=== PATIENT | male | born 1955 | race Caucasian/White ===

== ENCOUNTER → 2016-11-17 | Outpatient (CLI) | payer OTHER ==
[2016-11-17 12:29] LABS: HEMATOCRIT 37.5 % (42.0-52.0); HEMOGLOBIN 12.9 g/dL (14.0-18.0); MEAN CORPUSCULAR HEMOGLOBIN 31.6 PG (27-31); MEAN CORPUSCULAR HGB CONC 34.4 g/dL (33-37); MEAN PLATELET VOLUME 8.6 FL (7.4-12.2); RDW COEFFICIENT OF VARIATION 13.4 % (11.5-14.5); RED BLOOD COUNT 4.08 10^6/uL (4.70-6.10); WHITE BLOOD COUNT 4.25 10^3/uL (4.8-10.8)
--- NOTE | 2016-11-17 12:41 | DI ---
PA /LATERAL CHEST X-RAY, 11/17/2016 10:42 AM : Clinical History: Abnormal lung sounds. Previous Exam: None at this facility. There is no acute soft tissue or bony abnormality. Multiple old left-sided rib fractures are present. Heart size is normal. There is no acute infiltrate or effusion. Chronic blunting is present in the l eft costophrenic angle. There is marked hyperinflation with the diaphragms descending below the 12th ribs. There is centrilobular emphysema with mild pulmonary arterial hypertension. Mediastinal structu res are otherwise normal. Small calcified nodules are present deep to the sternum on the lateral view and these are in the range of 3-5 mm in diameter. Readin. There is no acute infiltrate or effusion. 2. Marked hyperinflation of both lungs secondary to centrilobular emphysema. There is mild pulmonary arterial hypertension. 3. Old granulomatous disease.
[2016-11-17 12:45] LABS: ASPARTATE AMINO TRANSFERASE 50 IU/L (21-57); BILIRUBIN,TOTAL 1.1 mg/dL (0.3-1.2); BLOOD UREA NITROGEN 10 mg/dL (7-22); BUN/CREATININE RATIO 11.11 (6-20); CALCIUM 9.5 mg/dL (8.7-10.7); CHLORIDE 92 meq/L (98-112); CREATININE 0.9 mg/dL (0.70-1.50); EST GLOMERULAR FILTRATION > 60 (>60 ml/min/1.73m(2)); GLUCOSE 86 mg/dL (78-110); POTASSIUM 4.6 meq/L (3.8-5.2); SODIUM 127 meq/L (135-145); TOTAL PROTEIN 8.2 g/dL (6.1-8.0)
== END ==
LOC: MOB LAB 10:53
PROVIDERS: ATTEND Family Medicine
DX: R09.89 Other specified symptoms and signs involving the circulatory and respiratory systems (principal); R63.4 Abnormal weight loss; J43.2 Centrilobular emphysema; I10 Essential (primary) hypertension; I27.2 Other secondary pulmonary hypertension; Z72.0 Tobacco use
CPT/HCPCS: 36415; 71020; 80053; 85027; G0103